=== PATIENT | male | born 1945 | race Caucasian/White ===

== ENCOUNTER 2020-02-12 10:31 | Emergency (ER) | payer MEDICARE ==
[2020-02-12 11:16] LABS: Bilirubin Negative (Negative); Blood, Urine Small (Negative); Clarity Clear (Clear); Glucose, Urine (Dipstick) Negative (Negative); Leukocyte Negative (Negative); Nitrite Negative (Negative); Protein, Urine (Dipstick) Negative (Neg-Trace); Urobilinogen 0.2 mg/dL (Less than 2)
[2020-02-12 11:18] LABS: Bacteria/HPF None Seen HPF (None Seen); RBC/HPF 0-3 HPF (0-3); Squamous Epithelial None Seen HPF (0-3); WBC/HPF 0-3 HPF (0-3)
== END 2020-02-12 11:55 | disposition home or self-care (01) ==
LOC: EDSEX 10:31 → NAV ERS 10:31
DX: R33.9 Retention of urine, unspecified (principal); Z79.899 Other long term (current) drug therapy
CPT/HCPCS: 51702; 81003; 81015; 87086

== ENCOUNTER 2022-07-11 02:14 | Emergency (ER) | payer MEDICARE ==
[2022-07-11 02:51] LABS: Bilirubin Negative (Negative); Blood, Urine Large (Negative); Clarity Clear (Clear); Glucose, Urine (Dipstick) Negative (Negative); Ketone, Urine Negative (Negative); Leukocyte Negative (Negative); Nitrite Negative (Negative); Protein, Urine (Dipstick) Negative (Neg-Trace); Specific Gravity, Urine 1.005 (1.002-1.036); Urobilinogen 0.2 mg/dL (Less than 2); pH, Urine 5.5 (5.0-9.0)
[2022-07-11 02:53] LABS: Bacteria/HPF None Seen HPF (None Seen); Squamous Epithelial None Seen HPF (0-3); WBC/HPF None Seen HPF (0-3)
== END 2022-07-11 03:20 | disposition home or self-care (01) ==
LOC: NAV ERS 02:14
DX: R33.9 Retention of urine, unspecified (principal)
CPT/HCPCS: 51702; 51798; 81003; 81015

== ENCOUNTER 2025-01-14 11:47 | Emergency (ER) | payer MEDICARE | END 2025-01-14 14:00 | disposition home or self-care (01) | LOC: NAV ERS 11:47 | DX: R33.9 Retention of urine, unspecified (principal); I10 Essential (primary) hypertension; Z79.899 Other long term (current) drug therapy | CPT/HCPCS: 51702; 51798; 99282 ==